=== PATIENT | male | born 1960 | race Caucasian/White ===

== ENCOUNTER 2017-07-28 15:27 | Emergency (ER) | payer BC, OTHER ==
[2017-07-28 15:39] VITALS: PULSE 78; TEMP 98.3; BMI 29.2
--- NOTE | 2017-07-28 17:11 | PDOC ---
History of Present Illness - General Chief Complaint: Blood Pressure Problem Stated Complaint: Blood Pressure Problem Time Seen by Provider: 07/28/17 17:10 History Source: Patient - History of Present Illness Initial Comments: 07/28/17 18:34 Patient is a 56 y.o. male with a PMH of multiple brain aneursym (s/p coil placement 2 months previous @ [facility]) and CVA (w/residual R sided weakness) who presents today via family c/o L sided facial droop and slurred speech - last known normal Wednesday (07/25). Patient denies any AMS, chest pain, dyspnea and notes he has not been evaluated by a neurologist for > 1 year. NKDA PMD: Dr. Castanon Past History - Past Medical History Allergies/Adverse Reactions: Allergies Allergy/AdvReac Type Severity Reaction Status Date / Time No Known Allergies Allergy Verified 07/28/17 17:45 Home Medications: Ambulatory Orders Atorvastatin Ca [Lipitor] 40 mg PO HS 07/28/17 Baclofen 10 mg PO BID 07/28/17 Baclofen 20 mg PO DAILY 07/28/17 Divalproex *ER* [Depakote *ER* -] 500 mg PO TID 07/28/17 Famotidine [Pepcid -] 20 mg PO BID 07/28/17 Lisinopril [Zestril] 10 mg PO HS 07/28/17 Metoprolol Tartrate [Lopressor -] 25 mg PO BID 07/28/17 COPD: No HTN: Yes Other medical history: stroke, Aneurysm x3 - Surgical History Neurologic Surgery: Yes - Immunization History Immunization Up to Date: No - Suicide/Smoking/Psychosocial Hx Smoking History: Never smoked Have you smoked in the past 12 months: No Information on smoking cessation initiated: No Hx Alcohol Use: No Drug/Substance Use Hx: No Substance Use Type: None Review of Systems - Review of Systems Constitutional: No: Chills, Fever HEENTM: No: Blurred Vision, Double Vision Respiratory: No: Shortness of Breath Cardiac (ROS): No: Chest Pain, Edema ABD/GI: No: Constipated, Diarrhea, Difficulty Swallowing, Nausea, Vomiting : Yes: Incontinence. No: Burning, Dysuria *Physical Exam - Vital Signs Last Vital Signs Temp Pulse Resp BP Pulse Ox 98.3 F 78 16 124/100 96 07/28/17 15:34 07/28/17 16:09 07/28/17 16:09 07/28/17 16:09 07/28/17 16:09 - Physical Exam General Appearance: Yes: Nourished, Thin HEENT: positive: EOMI, JO Neck: positive: Trachea midline, Supple Respiratory/Chest: positive: Lungs Clear Cardiovascular: positive: S1, S2 Gastrointestinal/Abdominal: positive: Normal Bowel Sounds, Soft Extremity: positive: Other (LUE contracted (baseline);) Neurologic: positive: Fully Oriented, Alert, Other (RUE 4/5, LUE 0/5 (baseline s /p CVA); slurred speech) ED Treatment Course - LABORATORY CBC & Chemistry Diagram: 07/28/17 17:56 07/28/17 17:44 Medical Decision Making - Medical Decision Making 07/28/17 21:00 CT head negative for acute ischemic event -- wet read shows likely prior CVA. Case d/w neurology, Dr. Sands, agree with outpatient MRI; has referral relationship with patient's PCP Dr. Reyez. Patient and patient's family counseled extensively on follow-up care. Patient discharge home with return precautions. *DC/Admit/Observation/Transfer Diagnosis at time of Disposition: Slurred speech, Droopy eyelid - Discharge Dispostion Disposition: HOME Condition at time of disposition: Fair Admit: No - Referrals Referrals: Samia Sands MD [Staff Physician] - - Patient Instructions Printed Discharge Instructions: DI for High Blood Pressure Additional Instructions: You were evaluated today for a possible stroke. A cat scan of your head showed no indication of a stroke. Your CT scan has been discussed with Dr. Sands, a neurologist. The contact information for his office is included - please call to make an appointment for an outpatient MRI. Please allow make an appointment with your primary care doctor, Dr. Reyez for counseling and evaluation of your blood pressure -- you may want to take your primary dehydration plant operator to the appointment so there is confirmation of how often you measure your blood pressure and acceptable BP numbers. Return to the Emergency Department for any new/worsening/concerning symptoms. - Post Discharge Activity
[2017-07-28 18:10] LABS: BASO % 0.6 % (0-2.0); EOS % 1.5 % (0-4.5); HEMATOCRIT 39.8 % (35.4-49); HEMOGLOBIN 13.1 GM/dL (11.7-16.9); LYMPH % 23.4 % (8-40); MCH 30.9 pg (25.7-33.7); MEAN CELL VOLUME 93.6 fl (80-96); MEAN PLT VOLUME 10.4 fl (7.5-11.1); NEUT % 63.5 % (42.8-82.8); PLATELET COUNT 137 K/MM3 (134-434); RBC 4.25 M/mm3 (4.00-5.60); RDW 15.2 % (11.9-15.9); WHITE BLOOD COUNT 5.9 K/mm3 (4.0-10.0)
--- NOTE | 2017-07-28 18:43 | PDOC ---
NIH Stroke Scale - Last Known Well Date/Time & Onset Date Last Known Well: 07/25/17 Time Last Known Well: 10:00 - Initial Evaluation Level of consciousness: Alert Ask patient the month and their age: Answers both correctly Ask patient to open & close eyes; make fist and let go: Obeys both correctly Best gaze (horizontal eye movement): Normal Visual field testing: No visual field loss Facial paresis (Show teeth/raise eyebrows/close eyes tight): Normal symmetrical movement Motor Function: Left Arm: Untestable (Joint fused orlimb amputated), explain: Motor Function: Right Arm: Normal (extends arm 90 (or 45) degrees for 10 seconds without drift Motor Function: Left Leg: Untestable (Joint fused or limb amputated), explain: Motor Function: Right Leg: Normal (extends leg 30 degrees for 5 seconds without drift) Limb Ataxia: Untestable (Joint fused or limb amputated), explain: Sensory(Use pinprick test arms,legs,trunk,face/side to side): Normal Best language (Describe picture, name items, read sentences): No Aphasia Dysarthria (read several words): Intubated or other physical barrierr, explain: Extinction and Inattention: No abnormality - Total Score NIH Stroke Scale Score: 0
[2017-07-28 18:57] LABS: INR 1.08 (0.82-1.09); PROTHROMBIN TIME (PATIENT) 12.2 SEC (9.98-11.88)
--- NOTE | 2017-07-28 18:59 | PDOC ---
Attending Attestation - Resident Resident Name: Skyla Harrington - ED Attending Attestation I have performed the following: I have examined & evaluated the patient, The case was reviewed & discussed with the resident, I agree w/resident's findings & plan, Exceptions are as noted - HPI HPI: 07/28/17 18:55 56 M with h/o HTN, Cerebral aneurysms, CVA with residual L facial droop and L sided paralysis, presenting to ER with 2 days of worsening facial droop and slurred speech. Per family members, pt's left eye has been more droopy than normal. They first noticed it on Wednesday. At that time, they also noticed that his speech was not as clear as usual. Pt himself denies noticing any changes in his speech or face. He denies any new weakness/numbness. Denies MURRAY/N/V. Denies F /C. Denies CP/SOB. Family decided to bring pt to hospital today because his diastolic BP was elevated (130/104). - Physicial Exam PE: 07/28/17 18:57 "GENERAL: Awake, alert, and fully oriented, in no acute distress HEAD: No signs of trauma EYES: PERRLA, EOMI, sclera anicteric, conjunctiva clear ENT: Auricles normal inspection, hearing grossly normal, nares patent, oropharynx clear without exudates. Moist mucosa NECK: Nontender, no stepoffs, Normal ROM, supple, no lymphadenopathy, JVD, or masses LUNGS: Breath sounds equal, clear to auscultation bilaterally. No wheezes, and no crackles HEART: Regular rate and rhythm, normal S1 and S2, no murmurs, rubs or gallops ABDOMEN: Soft, nontender, normoactive bowel sounds. No guarding, no rebound. No masses EXTREMITIES: Normal range of motion, no edema. No clubbing or cyanosis. No cords, erythema, or tenderness NEUROLOGICAL: L facial droop, L sided flaccid paralysis, RUE and RLE with 5/5 strength, sensation intact SKIN: Warm, Dry, normal turgor, no rashes or lesions noted. " - Medical Decision Making 07/28/17 18:58 56 M with prior CVA presenting with possible worsening of facial droop and slurred speech. Otherwise pt has no complaints. Ddx includes acute CVA vs recrudescence of old stroke. Last known normal was 3 days ago, so pt well outside window for tpa. Also contraindicated 2/2 prior ICH. - CTH - Labs, UA, CXR - Neuro consult 07/28/17 19:06 Dr. Sands, neurologist salesperson automobiles, recommends outpt work up. NIH Stroke Scale - Last Known Well Date/Time & Onset Date Last Known Well: 07/25/17 Time Last Known Well: 20:00 - Initial Evaluation Level of consciousness: Alert Ask patient the month and their age: Answers both correctly Ask patient to open & close eyes; make fist and let go: Obeys both correctly Best gaze (horizontal eye movement): Normal Visual field testing: No visual field loss Facial paresis (Show teeth/raise eyebrows/close eyes tight): Partial paralysis ( total or near paralysis of lower face) Motor Function: Left Arm: No effort against gravity Motor Function: Right Arm: Normal (extends arm 90 (or 45) degrees for 10 seconds without drift Motor Function: Left Leg: No effort against gravity Motor Function: Right Leg: Normal (extends leg 30 degrees for 5 seconds without drift) Limb Ataxia: No ataxia Sensory(Use pinprick test arms,legs,trunk,face/side to side): Normal Best language (Describe picture, name items, read sentences): No Aphasia Dysarthria (read several words): Mild to moderate slurring of words Extinction and Inattention: No abnormality - Total Score NIH Stroke Scale Score: 9
[2017-07-28 19:28] LABS: ANION GAP 7 (8-16); BILIRUBIN,TOTAL 0.6 mg/dL (0.2-1.0); BLOOD UREA NITROGEN 17 mg/dL (7-18); CHLORIDE 103 mmol/L (98-107); CO2 31 mmol/L (21-32); GLUCOSE,RANDOM 72 mg/dL (74-106); POTASSIUM 4.6 mmol/L (3.5-5.1); SGOT/AST 15 U/L (15-37); SGPT/ALT 20 U/L (12-78); SODIUM 141 mmol/L (136-145)
[2017-07-28 19:29] LABS: ALK PHOS 71 U/L (45-117); TOT PROT 7.6 g/dl (6.4-8.2)
[2017-07-28 19:55] VITALS: BP 147/121
--- NOTE | 2017-07-29 10:33 | EKG ---
Test Reason : Blood Pressure : / mmHG Vent. Rate : 074 BPM Atrial Rate : 074 BPM P-R Int : 162 ms QRS Dur : 080 ms QT Int : 402 ms P-R-T Axes : 039 -13 016 degrees QTc Int : 446 ms NORMAL SINUS RHYTHM VOLTAGE CRITERIA FOR LEFT VENTRICULAR HYPERTROPHY ABNORMAL ECG NO PREVIOUS ECGS AVAILABLE Confirmed by ADELINE GENAO MD ([id number]) on 07/29/2017 10:32:56 AM Referred By: Confirmed By:ADELINE GENAO MD
== END 2017-07-28 21:23 | disposition home or self-care (01) ==
LOC: JER 15:27
DX: R47.81 Slurred speech (principal); R29.810 Facial weakness; I69.398 Other sequelae of cerebral infarction; I10 Essential (primary) hypertension; I72.9 Aneurysm of unspecified site
CPT/HCPCS: 36415; 70450-TC; 71046-TC; 80053; 85025; 85610; 86850; 86900; 86901; 93005; 93010; 99284-25

== ENCOUNTER 2019-03-01 17:27 | Emergency (ER) | payer OTHER ==
[2019-03-01 17:50] VITALS: TEMP 98.6; BMI 25.8
--- NOTE | 2019-03-01 18:05 | PDOC ---
History of Present Illness - General Chief Complaint: Rectal Bleed Stated Complaint: RECTAL BLEEDING Time Seen by Provider: 03/01/19 18:05 History Source: Patient Exam Limitations: No Limitations - History of Present Illness Initial Comments: 58 year old male with PMH CVA (with residual left sided facial droop and left sided weakness; on plavix), HTN, multiple cerebral aneurysm (s/p coiling 2018), [facility] to ED with health care proxy and daughter for rectal bleeding since yesterday. Pt reported his home health aid alerted him that when she wiped him after a bowel movement yesterday she saw blood on the toilet paper, then today she noticed blood on toilet paper again today but also blood in the toilet. Healthcare proxy reported she does not know if the blood was mixed in the stool or on top. Pt denied abdominal pain, vomiting, diarrhea. Past History - Past Medical History Allergies/Adverse Reactions: Allergies Allergy/AdvReac Type Severity Reaction Status Date / Time No Known Allergies Allergy Verified 07/28/17 17:45 Home Medications: Ambulatory Orders Atorvastatin Ca [Lipitor] 40 mg PO HS 07/28/17 Baclofen 10 mg PO DAILY 07/28/17 Divalproex *ER* [Depakote *ER* -] 500 mg PO TID 07/28/17 Famotidine [Pepcid -] 20 mg PO BID 07/28/17 Lisinopril [Zestril] 5 mg PO HS 07/28/17 Metoprolol Succinate [Toprol Xl] 50 mg PO DAILY 03/01/19 COPD: No HTN: Yes - Surgical History Neurologic Surgery: Yes - Immunization History Immunization Up to Date: No - Suicide/Smoking/Psychosocial Hx Smoking History: Unknown if ever smoked Have you smoked in the past 12 months: No Information on smoking cessation initiated: No Hx Alcohol Use: No Drug/Substance Use Hx: No Substance Use Type: None Review of Systems - Review of Systems Able to Perform ROS?: Yes Comments:: General: denied fever, chills, generalized weakness. HEENT: denied sore throat, rhinorrhea, ear pain. Cardiovascular: denied chest pain, palpitations, syncope, diaphoresis. Respiratory: denied shortness of breath, cough, sputum production, hemoptysis. Gastrointestinal: admitted to rectal bleeding, constipation, straining. denied abdominal pain, nausea, vomiting, diarrhea, blood in stool. Genitourinary: denied dysuria, increased urinary frequency, hematuria, urinary incontinence, flank pain. Back: denied back pain. Musculoskeletal: denied joint pain, muscle pain, joint swelling. Neurological: denied headache, dizziness, numbness, tingling, weakness. Integumentary: denied rash, laceration, abrasion. Hematologic/Lymphatic: denied bruising or bleeding. *Physical Exam - Vital Signs Last Vital Signs Temp Pulse Resp BP Pulse Ox 98.6 F 73 18 145/108 H 97 03/01/19 17:44 03/01/19 17:44 03/01/19 17:44 03/01/19 17:44 03/01/19 17:44 - Physical Exam Comments: Constitutional: Well-nourished, Well-developed, appearing stated age. HEENT: head is normocephalic, atraumatic. EOMI. PERRLA. Neck: supple. Full ROM. Cardiovascular: regular heart rhythm. no murmurs. no pericardial friction rub. Respiratory: clear to auscultation bilaterally. no crackles, rhonchi or wheezing. no stridor. Gastrointestinal: soft, nontender. normal bowel sounds. no rebound, guarding, masses. Rectal: no external hemorrhoids. soft stool palpated in rectal vault. no gross blood on glove. Extremities: peripheral pulses intact. no lower extremity edema. Neurological: CN 2-12 grossly intact. moves all four extremities, contracted. slow speech. Psych: awake, alert, oriented x3. follows commands. answers questions appropriately. ED Treatment Course - LABORATORY CBC & Chemistry Diagram: 03/01/19 18:38 03/01/19 18:38 Medical Decision Making - Medical Decision Making 58 year old male with above PMH presented to ED for rectal bleeding since yesterday. Pt described blood to be seen on the toilet paper and in the toilet. Pt denied history of EGD/colonoscopy. Initial Vital Signs Temp Pulse Resp BP Pulse Ox 98.6 F 73 18 145/108 H 97 03/01/19 17:44 03/01/19 17:44 03/01/19 17:44 03/01/19 17:44 03/01/19 17:44 Afebrile. No tachycardia. No tachypnea. Hypertensive. No hypoxia on room air. Labs ordered: CBC, CMP, T&S, stool for blood Imaging ordered: none Medications ordered: none 03/01/19 19:01 03/01/19 18:21 Stool Occult Blood Positive 03/01/19 19:10 CBC WBC 6.0 K/mm3 (4.0-10.0) 03/01/19 18:38 RBC 4.67 M/mm3 (4.00-5.60) 03/01/19 18:38 Hgb 13.6 GM/dL (11.7-16.9) 03/01/19 18:38 Hct 41.1 % (35.4-49) 03/01/19 18:38 MCV 88.0 fl (80-96) 03/01/19 18:38 MCH 29.0 pg (25.7-33.7) 03/01/19 18:38 MCHC 33.0 g/dl (32.0-35.9) 03/01/19 18:38 RDW 14.5 % (11.9-15.9) 03/01/19 18:38 Plt Count 128 K/MM3 (134-434) L 03/01/19 18:38 MPV 10.2 fl (7.5-11.1) 03/01/19 18:38 Absolute Neuts (auto) 3.8 K/mm3 (1.5-8.0) 03/01/19 18:38 Neutrophils % 62.9 % (42.8-82.8) 03/01/19 18:38 Lymphocytes % 25.2 % (8-40) 03/01/19 18:38 Monocytes % 9.6 % (3.8-10.2) 03/01/19 18:38 Eosinophils % 1.6 % (0-4.5) 03/01/19 18:38 Basophils % 0.7 % (0-2.0) 03/01/19 18:38 Nucleated RBC % 0 % (0-0) 03/01/19 18:38 No leukocytosis. No anemia. 03/01/19 19:27 INR, PTT INR 1.02 (0.83-1.09) 03/01/19 18:38 CMP Sodium 142 mmol/L (136-145) 03/01/19 18:38 Potassium 3.9 mmol/L (3.5-5.1) 03/01/19 18:38 Chloride 108 mmol/L (98-107) H 03/01/19 18:38 Carbon Dioxide 27 mmol/L (21-32) 03/01/19 18:38 Anion Gap 6 MMOL/L (8-16) L 03/01/19 18:38 BUN 18.0 mg/dL (7-18) 03/01/19 18:38 Creatinine 0.9 mg/dL (0.55-1.3) 03/01/19 18:38 Est GFR (CKD-EPI)AfAm 108.73 03/01/19 18:38 Est GFR (CKD-EPI)NonAf 93.82 03/01/19 18:38 Random Glucose 91 mg/dL (74-106) 03/01/19 18:38 Calcium 8.2 mg/dL (8.5-10.1) L 03/01/19 18:38 Total Bilirubin 0.6 mg/dL (0.2-1) 03/01/19 18:38 AST 15 U/L (15-37) 03/01/19 18:38 ALT 24 U/L (13-61) 03/01/19 18:38 Alkaline Phosphatase 97 U/L (45-117) 03/01/19 18:38 Total Protein 6.6 g/dl (6.4-8.2) 03/01/19 18:38 Albumin 3.2 g/dl (3.4-5.0) L 03/01/19 18:38 No electrolyte abnormalities. No STIVEN. No transaminitis. Pt informed of results and need for F/U with PCP/GI, outpatient colonoscopy. Pt discharged. *DC/Admit/Observation/Transfer Diagnosis at time of Disposition: Rectal bleeding - Discharge Dispostion Disposition: HOME Condition at time of disposition: Stable Decision to Admit order: No - Referrals Referrals: Arabella Varela NA [Primary Care Provider] - Damien Gaitan MD [Staff Physician] - Jayjay Delacruz MD [Staff Physician] - Robby Saldaña DO [Staff Physician] - - Patient Instructions Printed Discharge Instructions: DI for Rectal Bleeding Additional Instructions: Your lab work showed you have blood in your stool. You were not anemic. Follow up with your primary care doctor within 3 days. Your care is not complete until you follow up. Follow up with a Waist Cutter within 3 days. Your care is not complete until you follow up. You may need an outpatient colonoscopy. -I have provided you with multiple referrals. Return to the Emergency Department for chest pain, shortness of breath, lightheadedness, abdominal pain, vomiting, increasing bleeding, clots in blood, or any other new, worsening or concerning symptoms. - Post Discharge Activity
[2019-03-01] MEDS ORDERED: BACLOFEN 10 MG TABLET (FP) PO ONE (18:37)
[2019-03-01] MEDS ORDERED: BACLOFEN 10 MG TABLET (FP) ONE (18:43)
[2019-03-01 19:00] LABS: BASO % 0.7 % (0-2.0); EOS % 1.6 % (0-4.5); HEMATOCRIT 41.1 % (35.4-49); HEMOGLOBIN 13.6 GM/dL (11.7-16.9); LYMPH % 25.2 % (8-40); MEAN PLT VOLUME 10.2 fl (7.5-11.1); MONO % 9.6 % (3.8-10.2); NEUT % 62.9 % (42.8-82.8); PLATELET COUNT 128 K/MM3 (134-434); RBC 4.67 M/mm3 (4.00-5.60); RDW 14.5 % (11.9-15.9)
[2019-03-01 19:17] LABS: INR 1.02 (0.83-1.09)
[2019-03-01 19:27] LABS: ALBUMIN 3.2 g/dl (3.4-5.0); BILIRUBIN,TOTAL 0.6 mg/dL (0.2-1); CALCIUM 8.2 mg/dL (8.5-10.1); CREATININE 0.9 mg/dL (0.55-1.3); POTASSIUM 3.9 mmol/L (3.5-5.1); TOT PROT 6.6 g/dl (6.4-8.2)
--- NOTE | 2019-03-01 20:06 | PDOC ---
Documentation entered by Chase Loza SCRIBE, acting as scribe for Villa Richardson MD. Villa Richardson MD: This documentation has been prepared by the Dago abel Daniel, SCRIBE, under my direction and personally reviewed by me in its entirety. I confirm that the documentation accurately reflects all work, treatment, procedures, and medical decision making performed by me. Attending Attestation - Resident Resident Name: PraveenaSimin - ED Attending Attestation I have performed the following: I have examined & evaluated the patient, The case was reviewed & discussed with the resident, I agree w/resident's findings & plan, Exceptions are as noted - HPI HPI: 03/01/19 19:37 The patient is a 58 year old male with a past medical history of multiple CVAs (residual left and right sided deficits), HTN, GERD, and multiple aneurysms here today for evaluation of rectal bleeding. As per the patients aide, she noticed bright red blood on toilet paper yesterday and today when wiping after the patient defecated and today noticed blood in the bowl. Patient denies any pain but notes having to strain to defecate recently. Patient denies headache, lightheadedness. Denies fever, chills. Denies chest pain, shortness of breath. Denies nausea, vomiting, diarrhea, abdominal pain. Allergies: NKA PCP: Arabella Varela - Physicial Exam PE: 03/01/19 20:00\ agree with resident exam. - Medical Decision Making 03/01/19 20:00 Likely UGIB, normal vitals with no tachycardia or hypotension asymptomatic guaic positive brown stool Hgb unchanged from prior stable for GI follow up outpatient , pt will require colonoscopy/endoscopy discussed with family who are comfortable with plan
[2019-03-01 20:36] VITALS: BP 147/102; PULSE 82
--- NOTE | 2019-03-02 15:30 | EKG ---
Test Reason : Blood Pressure : / mmHG Vent. Rate : 077 BPM Atrial Rate : 077 BPM P-R Int : 170 ms QRS Dur : 074 ms QT Int : 400 ms P-R-T Axes : 028 -13 023 degrees QTc Int : 452 ms NORMAL SINUS RHYTHM MODERATE VOLTAGE CRITERIA FOR LVH, MAY BE NORMAL VARIANT BORDERLINE ECG WHEN COMPARED WITH ECG OF 28-JUL-2017 15:36, NO SIGNIFICANT CHANGE WAS FOUND Confirmed by BIRGIT KNAPP, ADELINE ([id number]) on 03/02/2019 3:29:44 PM Referred By: Confirmed By:ADELINE GENAO MD
== END 2019-03-01 21:04 | disposition home or self-care (01) ==
LOC: JER 17:27
DX: K62.5 Hemorrhage of anus and rectum (principal); I10 Essential (primary) hypertension
CPT/HCPCS: 36415; 80053; 82272; 85025; 85610; 86850; 86900; 86901; 93005; 93010; 99281-25; J0475